=== PATIENT | female | born 1950 ===

== ENCOUNTER → 2016-09-04 | Outpatient (CLI) | payer OTHER | END | disposition home or self-care (01) | LOC: C.LABSPEC 16:43 | PROVIDERS: ATTEND Dermatology | DX: B35.3 Tinea pedis (principal) ==

== ENCOUNTER → 2016-12-13 | Outpatient (CLI) | payer OTHER | END | disposition home or self-care (01) | LOC: C.LABSPEC 14:59 | PROVIDERS: ATTEND Dermatology | DX: B35.1 Tinea unguium (principal) ==